=== PATIENT | female | born 1975 | race Caucasian/White ===

== ENCOUNTER 2023-08-16 10:23 | Emergency (ER) | payer SELFPAY ==
[~2023-08-16] VITALS: Ht 175 cm; Wt 95.2 kg
--- NOTE | 2023-08-16 10:41 | ED Abdominal Pain ---
General Chief Complaint: Abdominal/GI Problems Stated Complaint: ABD PAIN Nursing Triage Note: pt c/o RLQ pain started yesterday, rates 3/10, worse with movement. last BM yesterday after enema. pt reports nausea last night as well. pt reports fever of 101 last night, 99.8 during triage. Source of Information: Patient Exam Limitations: No Limitations History of Present Illness Date Seen by Provider: Aug 16, 2023 Time Seen by Provider: 10:29 Initial Comments 48-year-old female presents the emergency department today for right lower quadrant abdominal pain. Symptoms started last night. Is described as sharp stabbing without radiation. It is definitely worse with palpation. She had decreased appetite throughout the day yesterday and reports fevers to 101 when taken orally. Pain persisted throughout the day today which was the reason for presentation. She has a history of IBSC and thought maybe she was constipated so she used an enema yesterday to help her have a bowel movement. She had a bowel movement and did not get any relief from her pain. She has had nausea without any vomiting. She has a history of cervical cancer and had intrauterine radiation but still has all of her female organs per her report. She has had no intra-abdominal surgeries. No urinary symptoms. All other systems reviewed and negative except documented per HPI. Voice recognition software was used to help create this chart Allergies and Home Medications Allergies Coded Allergies: No Known Drug Allergies (Unverified , 08/16/23) Patient Home Medication List Home Medication List Reviewed: Yes Cephalexin (Cephalexin) 500 Mg Tablet, 500 MG PO BID Prescribed by: EMANUEL PHILLIPS MD on 08/16/23 1122 Review of Systems Review of Systems Constitutional: see HPI Past Zjkjcnw-Qjznxq-Fchhch Hx Patient Social History Tobacco Use?: No Use of E-Cig and/or Vaping dev: No Substance use?: No Alcohol Use?: No Physical Exam Vital Signs Vital Signs - First Documented 08/16/23 08/16/23 10:34 11:36 Temp 37.7 Pulse 102 Resp 18 B/P (MAP) 149/95 (113) Pulse Ox 98 O2 Delivery Room Air Capillary Refill : Less Than 3 Seconds Height/Weight/BMI Height: '" Weight: lbs. oz. kg; 31.00 BMI Method: General Appearance: WD/WN, no apparent distress HEENT: normal ENT inspection, pharynx normal Neck: non-tender, supple Respiratory: chest non-tender, lungs clear, normal breath sounds, no re spiratory distress, no accessory muscle use Cardiovascular: regular rate, rhythm, no murmur Gastrointestinal: normal bowel sounds, soft, no organomegaly, tenderness (Tenderness palpation diffusely about the lower abdomen bilaterally but does appear to be worse in the right lower abdomen. There is voluntary guarding without any rebound tenderness. No mass organomegaly. No skin changes.) Extremities: normal range of motion, non-tender, normal inspection, normal capillary refill Neurologic/Psychiatric: alert, oriented x 3 Skin: normal color, warm/dry Progress/Results/Core Measures Results/Orders Lab Results Laboratory Tests Test 08/16/23 10:40 08/16/23 10:45 Range/Units White Blood Count 11.7 H 4.3-11.0 10^3/uL Red Blood Count 4.62 3.80-5.11 10^6/uL Hemoglobin 13.5 11.5-16.0 g/dL Hematocrit 41 35-52 % Mean Corpuscular Volume 88 80-99 fL Mean Corpuscular Hemoglobin 29 25-34 pg Mean Corpuscular Hemoglobin Concent 33 32-36 g/dL Red Cell Distribution Width 13.6 10.0-14.5 % Platelet Count 204 130-400 10^3/uL Mean Platelet Volume 9.1 9.0-12.2 fL Immature Granulocyte % (Auto) 0 % Neutrophils (%) (Auto) 83 H 42-75 % Lymphocytes (%) (Auto) 10 L 12-44 % Monocytes (%) (Auto) 6 0-12 % Eosinophils (%) (Auto) 0 0-10 % Basophils (%) (Auto) 0 0-10 % Neutrophils # (Auto) 9.8 H 1.8-7.8 10^3/uL Lymphocytes # (Auto) 1.2 1.0-4.0 10^3/uL Monocytes # (Auto) 0.7 0.0-1.0 10^3/uL Eosinophils # (Auto) 0.0 0.0-0.3 10^3/uL Basophils # (Auto) 0.0 0.0-0.1 10^3/uL Immature Granulocyte # (Auto) 0.1 0.0-0.1 10^3/uL Sodium Level 136 135-145 MMOL/L Potassium Level 3.9 3.6-5.0 MMOL/L Chloride Level 100 98-107 MMOL/L Carbon Dioxide Level 26 21-32 MMOL/L Anion Gap 10 5-14 MMOL/L Blood Urea Nitrogen 13 7-18 MG/DL Creatinine 0.81 0.60-1.30 MG/DL Estimat Glomerular Filtration Rate 91 BUN/Creatinine Ratio 16 Glucose Level 104 70-105 MG/DL Calcium Level 9.7 8.5-10.1 MG/DL Corrected Calcium 9.4 8.5-10.1 MG/DL Total Bilirubin 0.9 0.1-1.0 MG/DL Aspartate Amino Transf (AST/SGOT) 14 5-34 U/L Alanine Aminotransferase (ALT/SGPT) 19 0-55 U/L Alkaline Phosphatase 98 40-136 U/L Total Protein 8.2 6.4-8.2 GM/DL Albumin 4.4 3.2-4.5 GM/DL Lipase 23 8-78 U/L Urine Color YELLOW Urine Clarity CLEAR Urine pH 7.0 5-9 Urine Specific [place] 1.020 1.016-1.022 Urine Protein 2+ H NEGATIVE Urine Glucose (UA) NEGATIVE NEGATIVE Urine Ketones NEGATIVE NEGATIVE Urine Nitrite NEGATIVE NEGATIVE Urine Bilirubin 1+ H NEGATIVE Urine Urobilinogen 1.0 < = 1.0 MG/DL Urine Leukocyte Esterase 1+ H NEGATIVE Urine RBC (Auto) 2+ H NEGATIVE Urine RBC 10-25 H /HPF Urine WBC 5-10 H /HPF Urine Squamous Epithelial Cells 5-10 /HPF Urine Renal Epithelial Cells 0-2 /HPF Urine Crystals NONE /LPF Urine Bacteria FEW H /HPF Urine Casts NONE /LPF Urine Mucus SMALL H /LPF Urine Culture Indicated YES My Orders Orders - EMANUEL PHILLIPS DO Comprehensive Metabolic Panel (08/16/23 10:37) Lipase (08/16/23 10:37) Ua Culture If Indicated (08/16/23 10:37) Ct Abd/Pelvis Wo(Kidney Stone) (08/16/23 10:37) Cbc And Automated Diff (08/16/23 10:37) Fentanyl Injection (Fentanyl Injection (08/16/23 10:45) Ed Iv/Invasive Line Start (08/16/23 10:44) Urine Culture (08/16/23 10:45) Medications Given in ED Current Medications Medications Dose Ordered Sig/[place] Route Start Time Stop Time Status Last Admin Dose Admin Fentanyl Citrate 50 mcg ONCE ONCE IVP 08/16/23 10:45 08/16/23 10:46 DC 08/16/23 10:47 50 MCG Vital Signs/I&O 08/16/23 08/16/23 10:34 11:36 Temp 37.7 Pulse 102 84 Resp 18 B/P (MAP) 149/95 (113) 117/75 Pulse Ox 98 98 O2 Delivery Room Air Blood Pressure Mean: 113 Departure Communication (Admissions) Patient bilateral lower abdominal pain with focal tenderness in the right lower abdomen primarily. CT scan is negative for any evidence of appendicitis, pelvic pathology or other surgical emergency or cause of her pain. UA does show signs of urinary tract infection which is consistent with her current symptoms. She has no leukocytosis, is afebrile and nontoxic. Labs are otherwise unremarkable. Discharged home with p.o. antibiotics in stable condition. Impression Primary Impression: UTI (urinary tract infection) Qualified Codes: N30.01 - Acute cystitis with hematuria Disposition: HOME, SELF-CARE Condition: Stable Departure-Patient Inst. Referrals: NO,LOCAL PHYSICIAN (PCP/Family) Primary Care Physician Patient Instructions: Urinary tract infections in adults Add. Discharge Instructions: Take antibiotics as prescribed. Increase your fluids and rest. Use motrin and tylenol as needed for pain All discharge instructions reviewed with patient and/or family. Voiced understanding. Scripts Cephalexin (Cephalexin) 500 Mg Tablet 500 MG PO BID for 5 Days, #5 TAB Prov: EMANUEL PHILLIPS DO 08/16/23 EMANUEL PHILLIPS DO Aug 16, 2023 10:41
[2023-08-16] MEDS ORDERED: fentaNYL INJECTION 100 MCG/2 ML VIAL IVP ONE (10:45)
[2023-08-16 10:47] LABS: BASOPHILS % (AUTO) 0 % (0-10); EOSINOPHILS % (AUTO) 0 % (0-10); HEMATOCRIT 41 % (35-52); HEMOGLOBIN 13.5 g/dL (11.5-16.0); LYMPHOCYTES # (AUTO) 1.2 10^3/uL (1.0-4.0); LYMPHOCYTES % (AUTO) 10 % (12-44); MEAN CORPUSCULAR HEMOGLOBIN 29 pg (25-34); MEAN CORPUSCULAR HGB CONC 33 g/dL (32-36); MEAN CORPUSCULAR VOLUME 88 fL (80-99); MEAN PLATELET VOLUME 9.1 fL (9.0-12.2); MONOCYTES # (AUTO) 0.7 10^3/uL (0.0-1.0); MONOCYTES % (AUTO) 6 % (0-12); NEUTROPHILS # (AUTO) 9.8 10^3/uL (1.8-7.8); NEUTROPHILS % (AUTO) 83 % (42-75); PLATELET COUNT 204 10^3/uL (130-400); WHITE BLOOD COUNT 11.7 10^3/uL (4.3-11.0)
[2023-08-16 11:00] LABS: ALBUMIN 4.4 GM/DL (3.2-4.5); POTASSIUM 3.9 MMOL/L (3.6-5.0)
[2023-08-16 11:01] LABS: CALCIUM 9.7 MG/DL (8.5-10.1)
[2023-08-16 11:01] LABS: BACTERIA,URINE FEW /HPF; BILIRUBIN,URINE 1+ (NEGATIVE); CLARITY,URINE CLEAR; COLOR,URINE YELLOW; GLUCOSE, URINE (UA) NEGATIVE (NEGATIVE); KETONES,URINE NEGATIVE (NEGATIVE); LEUKOCYTE ESTERASE ,URINE 1+ (NEGATIVE); NITRITE,URINE NEGATIVE (NEGATIVE); PROTEIN,URINE 2+ (NEGATIVE); RENAL EPITHELIAL CELLS,URINE 0-2 /HPF
[2023-08-16 11:03] LABS: TOTAL PROTEIN 8.2 GM/DL (6.4-8.2)
[2023-08-16 11:04] LABS: BILIRUBIN,TOTAL 0.9 MG/DL (0.1-1.0)
[2023-08-16 11:06] LABS: CREATININE SERUM 0.81 MG/DL (0.60-1.30)
--- NOTE | 2023-08-16 11:09 | Diagnostic Imaging Report ---
PROCEDURE: CT urinary tract, rule out kidney stone. TECHNIQUE: Multiple contiguous axial images were obtained through the abdomen and pelvis without the use of intravenous contrast. Auto Exposure Controls were utilized during the CT exam to meet ALARA standards for radiation dose reduction. INDICATION: Right lower quadrant pain. COMPARISON: None. FINDINGS: Limited views of the abdomen demonstrates no significant abnormality. The liver is diffusely hypodense. The spleen, adrenal glands, pancreas are normal. The gallbladder is normal. The kidneys demonstrate no nephrolithiasis or hydronephrosis. No perinephric fluid collections. The bowel is nondilated. No inflammatory changes around the bowel. Mild fluid distention of small bowel within the pelvis with No free air, loculated fluid collections, or ascites. Postsurgical changes from prior hysterectomy. The aorta and IVC are normal in caliber. No abdominal pelvic lymphadenopathy. The graft the osseous structures demonstrate no lytic or sclerotic bone lesions. IMPRESSION: No acute findings in the abdomen or pelvis. Normal appendix. No nephrolithiasis or hydronephrosis. Dictated by: Dictated on workstation # [id number]
[2023-08-16] MEDS ORDERED: CEPH500T PO (11:22)
[2023-08-16 11:36] VITALS: BP 117/75
== END 2023-08-16 11:35 | disposition home or self-care (01) ==
LOC: ER 10:27
DX: N39.0 Urinary tract infection, site not specified (principal)
CPT/HCPCS: 36415; 74176; 80053; 81000; 83690; 85025; 87088; 96374